=== PATIENT | male | born 1970 | race Two or more races ===

== ENCOUNTER → 2020-05-04 10:05 | Outpatient (BNVA) | payer OTHER, SELFPAY | PROVIDERS: PCP Internal Medicine; Visit Provider Physician Assistant | DX: S29.011A Strain of muscle and tendon of front wall of thorax, initial encounter (principal); X58.XXXA Exposure to other specified factors, initial encounter; Y93.9 Activity, unspecified; Y92.9 Unspecified place or not applicable; Y99.9 Unspecified external cause status | CPT/HCPCS: 99214 ==

== ENCOUNTER → 2020-06-15 11:15 | Outpatient (BNVA) | payer OTHER, SELFPAY | PROVIDERS: PCP Internal Medicine; Referring Provider Internal Medicine; Visit Provider Orthopaedic Surgery | DX: S29.011D Strain of muscle and tendon of front wall of thorax, subsequent encounter (principal) | CPT/HCPCS: 99212 ==

== ENCOUNTER 2020-08-07 16:12 | Outpatient (REF) | payer OTHER, SELFPAY | END 2020-08-07 16:13 | disposition home or self-care (01) | LOC: HO.LAB 16:12 | PROVIDERS: Visit Provider Internal Medicine | DX: Z20.822 Contact with and (suspected) exposure to COVID-19 (principal) | CPT/HCPCS: 36415; C9803; U0003 ==

== ENCOUNTER 2020-11-21 11:00 | Outpatient (RCR) | payer OTHER, SELFPAY ==
--- NOTE | 2020-10-24 17:29 | MHC.PT.EP ---
[facility] [place] [facility] [place] [facility] [place] [facility] [address] Jazmín Balderas [address] [phone] F: [phone] F: [phone] F: [phone] F: [phone] Physical Therapy Plan of Care Date of Evaluation: 10/24/20 Date of Surgery: N/A Diagnosis: strain of muscle and tendon front wall of thorax Assessment: pt presents to physical therapy with pain, decreased range of motion, pain with strength testing, impaired functional mobility, and impaired postural awareness. pt is a good candidate for skilled PT due to age, potential remediation of impairments, typical disease/condition progression and prognosis, comorbidities, and motivation. pt would benefit from tailored strengthening and stretching exercise program, functional training, postural re-training, neuromuscular re-education, modalities as needed for pain, and equipment safety demonstration. Frequency and Duration: The patient will be seen 2x/wk for 4 wks Short Term Goals: pt will be I w/ HEP to promote self-management of condition. pt will improve L shoulder flexion by 15 degrees to facilitate ease in reaching for objects on higher shelves. Retirement Goals: pt will report <1/10 L shoulder pain w/ lifting >30# from floor to chest height x 5 reps to promote pain-free return to work. 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 Treatment Plan: Modalities to reduce pain, spasms and effusion. Manual therapy to restore motion and function. Therapeutic exercise to improve strength and flexibility. Neuromuscular re-education for posture and balance. Therapeutic activities to return to functional activities of daily living. Electronically signed by: Jewels Costa PT, DPT Please sign and return to therapist. Thank you for your referral.
--- NOTE | 2020-12-04 15:38 | MHC.PT.DC ---
[facility] [place] [facility] [place] [facility] [place] [facility] [address] Jazmín Balderas 140 [facility] [phone] F: [phone] F: [phone] F: [phone] F: [phone] Physical Therapy Discharge Report Diagnosis: strain of muscle and tendon front wall of thorax Date of Surgery: N/A Date of Evaluation: 10/24/20 Date of Discharge: 12/04/20 Treatments to Date: 8 Cancellations to Date: 1 No Shows to Date: 1 Discharge Status: Visit Non-compliance Discharge Summary: The patient was progressing well with an upper body strengthening program. He no showed his last visit and has not followed up to schedule another in nearly two weeks. He is discharged from this plan of care due to visit noncompliance. Electronically signed by: Jewels Costa PT, DPT Please sign and return to therapist. Thank you for your referral.
== END 2020-12-04 15:38 | disposition other institution (70) ==
LOC: HO.PT 11:00
PROVIDERS: Visit Provider Physician Assistant
DX: S29.011D Strain of muscle and tendon of front wall of thorax, subsequent encounter (principal)
CPT/HCPCS: 97110; 97140; 97161; 97530

== ENCOUNTER → 2020-11-23 09:57 | Outpatient (BNVA) | payer OTHER, SELFPAY | PROVIDERS: PCP Internal Medicine; Visit Provider Physician Assistant | DX: S29.011D Strain of muscle and tendon of front wall of thorax, subsequent encounter (principal) | CPT/HCPCS: 99212 ==

== ENCOUNTER 2022-01-24 10:48 | Outpatient (REF) | payer OTHER, SELFPAY ==
[2022-01-24 10:58] LABS: MANUAL DIFF FLAG NO
[2022-01-24 11:27] LABS: Basophils Absolute Auto 0.1 X10*3/uL (0.0-0.2); Basophils Percent Auto 0.9 % (0-2); Eosinophils Absolute Auto 0.4 X10*3/uL (0.0-0.4); Hemoglobin 14.1 g/dl (14.0-18.0); Imm Gran Abs Auto 0.01 X10*3/uL (0.00-0.03); Imm Gran Pct Auto 0.1 % (0.0-0.4); Lymphocytes Absolute Auto 3.5 X10*3/uL (1.2-4.9); Lymphocytes Percent Auto 39.3 % (20-40); Mean Corpuscular HGB Conc 31.3 g/dl (31.0-36.0); Mean Corpuscular Hemoglobin 26.1 pg (27.0-33.0); Mean Corpuscular Volume 83.3 fL (80.0-98.0); Monocytes Absolute Auto 0.6 X10*3/uL (0.1-1.2); Monocytes Percent Auto 7.1 % (2-11); Neutrophils Absolute Auto 4.4 x10*3/uL (2.0-8.3); Neutrophils Percent Auto 48.6 % (45-73); Platelet Count 248 X10*3/uL (160-400); Red Cell Distribution Width 13.2 % (11.0-16.0)
[2022-01-24 11:55] LABS: Alanine Aminotransferase 25 U/L (0-40); Albumin Level 4.1 g/dL (3.5-5.0); Alkaline Phosphatase 84 U/L (39-117); Anion Gap 12 (12-20); Aspartate Amino Transferase 19 U/L (5-37); Bilirubin Total 0.4 mg/dL (0.0-1.0); Blood Urea Nitrogen 12 mg/dL (9-16); Calcium 9.3 mg/dL (8.4-10.2); Carbon Dioxide 28 mmol/L (22-29); Chloride 104 mmol/L (96-108); Cholesterol 196 mg/dL; Estimated Glomerular Filt Rate > 60; Glucose Random 110 mg/dL (60-115); HDL Cholesterol 33 mg/dL; LDL Cholesterol Calculated 121 mg/dl; Potassium 4.6 mmol/L (3.3-5.1); Sodium 139 mmol/L (135-145); Total Protein 7.1 g/dL (6.5-8.0); Triglycerides 210 mg/dL
[2022-01-24 12:00] LABS: B Type Natriuretic Peptide < 10 pg/mL (<100)
[2022-01-24 12:19] LABS: TSH reflex Free T4 2.19 uIU/mL (0.32-4.0)
[2022-01-30 16:36] LABS: Testosterone, Free 48.5 pg/mL (35.0-155.0); Testosterone, Total 265 ng/dL (250-1100)
== END 2022-01-24 10:49 | disposition home or self-care (01) ==
LOC: HO.LAB 10:48
PROVIDERS: PCP Internal Medicine; Visit Provider Nurse Practitioner Family
DX: R60.0 Localized edema (principal); R37 Sexual dysfunction, unspecified; I10 Essential (primary) hypertension; E78.00 Pure hypercholesterolemia, unspecified
CPT/HCPCS: 36415; 80053; 80061; 83880; 84402; 84403; 84443; 85025

== ENCOUNTER → 2022-02-08 13:29 | Outpatient (BNVA) | payer OTHER, SELFPAY | PROVIDERS: PCP Internal Medicine; Visit Provider Physician Assistant | DX: R20.0 Anesthesia of skin (principal); R20.2 Paresthesia of skin | CPT/HCPCS: 99212 ==

== ENCOUNTER → 2022-02-14 11:49 | Outpatient (REF) | payer OTHER, SELFPAY ==
--- NOTE | 2022-02-14 11:54 | ECG_ITS ---
Test Reason : n52.9 Blood Pressure : / mmHG Vent. Rate : 062 BPM Atrial Rate : 062 BPM P-R Int : 134 ms QRS Dur : 084 ms QT Int : 378 ms P-R-T Axes : 058 -19 010 degrees QTc Int : 383 ms Normal sinus rhythm Normal ECG No previous ECGs available Referred By: Dayanara Sebastian Electronically Signed By:DELICIA MANCILLA MD
== END ==
LOC: HO.CARD 11:49
PROVIDERS: PCP Internal Medicine; Visit Provider Nurse Practitioner Family
DX: N52.9 Male erectile dysfunction, unspecified (principal); E66.9 Obesity, unspecified; R37 Sexual dysfunction, unspecified; R60.0 Localized edema
CPT/HCPCS: 93005

== ENCOUNTER 2022-04-18 10:04 | Outpatient (REF) | payer OTHER, SELFPAY ==
--- NOTE | 2022-04-18 10:07 | EMG_ITS ---
Bilateral median and ulnar motor and sensory studies were performed. Bilateral radial sensory study was performed and paraspinal muscles were tested with a needle. IMPRESSION: Mild bilateral median neuropathy across carpal tunnel. MD RADHA Bueno/JUNE / [id number]
== END 2022-04-18 10:05 | disposition home or self-care (01) ==
LOC: HO.NEURO 10:04
PROVIDERS: Visit Provider Physician Assistant
DX: R20.0 Anesthesia of skin (principal); R20.2 Paresthesia of skin
CPT/HCPCS: 95886; 95911

== ENCOUNTER 2022-06-10 14:52 | Outpatient (REF) | payer OTHER, SELFPAY ==
--- NOTE | ~2022-06-10 | US_ITS ---
EXAMINATION: MM DIAGNOSTIC DIGITAL BREAST TOMOSYNTHESIS, BILATERAL US DIAGNOSTIC ULTRASOUND BREAST, RIGHT CLINICAL INFORMATION: 51-year-old male with right retroareolar fullness of mastodynia for approximately 3 months. No discharge. No prior breast imaging. COMPARISON: None (current study represents initial baseline exam). TECHNIQUE: Digital breast tomosynthesis is performed in both the craniocaudal and mediolateral oblique views along with computer-aided detection (CAD). Synthesized 2D images are generated from the tomosynthesis. Ultrasound right breast is targeted to the retroareolar and periareolar region. Grayscale imaging and color Doppler are performed without and with harmonics. FINDINGS: There are scattered areas of fibroglandular density (ACR BI-RADS breast composition Category b). There is mild right retroareolar gynecomastia, trace on left. No focal mass or architectural abnormality. Neither breast shows abnormal calcifications, skin thickening, or coarsening of the stromal markings. There is uterine artifact overlying the left axilla. Ultrasound right breast shows no cystic or solid mass, architectural abnormality, or focal duct ectasia. No skin thickening or edema tracking in soft tissue planes. No hyperemia. Results are discussed with the patient at time of visit, using an pharmacy technician inpatient. US/US breast RT limited IMPRESSION: -Mild right retroareolar gynecomastia, trace on left. -Unremarkable right breast ultrasound. ASSESSMENT: BI-RADS 2: Benign RECOMMENDATION: -Patient should be managed based on the clinical impression. -If there is still clinically palpable concern, further assessment with surgical consult may be considered.
== END 2022-06-10 14:53 | disposition home or self-care (01) ==
LOC: HO.MAMMO 14:52
PROVIDERS: PCP Internal Medicine; Visit Provider Internal Medicine
DX: N64.4 Mastodynia (principal)
CPT/HCPCS: 76642; 77062; 77066

== ENCOUNTER → 2022-06-26 14:43 | Outpatient (BNVA) | payer OTHER, SELFPAY | PROVIDERS: PCP Internal Medicine; Visit Provider Orthopaedic Surgery | DX: G56.03 Carpal tunnel syndrome, bilateral upper limbs (principal) | CPT/HCPCS: 99202 ==

== ENCOUNTER → 2022-11-19 13:26 | Outpatient (BNVA) | payer OTHER, SELFPAY | PROVIDERS: PCP Internal Medicine; Visit Provider Orthopaedic Surgery | DX: G56.03 Carpal tunnel syndrome, bilateral upper limbs (principal) | CPT/HCPCS: 99202 ==